=== PATIENT | male | born 1995 | race African-American/Black ===

== ENCOUNTER 2019-08-12 16:11 | Emergency (ER) | payer OTHER ==
[~2019-08-12] VITALS: Ht 172.7 cm; Wt 72.6 kg
[2019-08-12 16:29] LABS: ABSOLUTE NEUTROPHILS 2.5 thou/uL (1.4-8.2); BASOPHILS 0.4 % (0.0-2.0); HEMATOCRIT 46.2 % (42.0-52.0); HEMOGLOBIN 14.9 gm/dL (14.0-18.0); LYMPHOCYTES 43.3 % (24.0-44.0); MCH 27.6 pg (26.0-34.0); MCHC 32.2 g/dL (28.0-37.0); MCV 85.7 fL (80.0-100.0); MONOCYTES 9.9 % (1.0-8.0); PLATELET COUNT 205 thou/uL (150-400); POLYS 44.4 % (36.0-66.0); RBC 5.39 mil/uL (4.50-6.00); RDW 14.1 % (10.5-14.5); WBC 5.6 thou/uL (4.0-11.0)
[2019-08-12 16:35] LABS: ANION GAP 6 mmol/L (7-16); BUN 17 mg/dL (7-18); CALCIUM 9.8 mg/dL (8.5-10.1); CHLORIDE 103 mmol/L (98-107); CO2 30 mmol/L (21-32); CREATININE 1.5 mg/dL (0.7-1.3); GLUCOSE 138 mg/dL (74-106); POTASSIUM 3.8 mmol/L (3.5-5.1); SODIUM 139 mmol/L (136-145)
[2019-08-12 16:45] LABS: ALBUMIN 4.4 g/dL (3.4-5.0); SGOT 25 U/L (15-37); SGPT 30 U/L (30-65); TOTAL BILIRUBIN 0.5 mg/dL (<0.1-1.0); TOTAL PROTEIN 8.2 g/dL (6.4-8.2); TROPONIN-I <0.06 ng/mL (<0.06)
[2019-08-12 19:29] VITALS: BP 135/83
[2019-08-12 19:53] LABS: AMP/METHAMP Negative (Negative); BARBITURATES Negative (Negative); BENZODIAZEPINES Negative (Negative); COCAINE Negative (Negative); METHADONE Negative (Negative); OPIATES Negative (Negative); PCP Negative (Negative)
--- NOTE | 2019-08-13 09:42 | EKG ---
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 : 1995 Requested By: Moshe Odonnell Order Number: [id number] MD: Oz Carrasquillo Measurements Intervals [place] Rate: 123 P: 74 DE: 143 QRS: 83 QRSD: 96 T: 10 QT: 298 QTc: 427 Interpretive Statements Sinus tachycardia RSR' in V1 or V2, probably normal variant No previous ECG available for comparison Electronically Signed On 08-13-2019 9:42:15 [employer]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
== END 2019-08-12 20:14 | disposition home or self-care (01) ==
LOC: ER 16:11 → EDBD 16:11 → ER 20:14
PROVIDERS: Emergency Medicine; Student in an Organized Health Care Education/Training Program
DX: R07.9 Chest pain, unspecified (principal); R00.2 Palpitations